=== PATIENT | male | born 1965 | race Hispanic/Latino ===

== ENCOUNTER 2016-07-25 00:04 | Emergency (ER) | payer OTHER ==
[~2016-07-25] VITALS: Ht 167.6 cm; Wt 68.0 kg
[2016-07-25 00:43] LABS: ABSOLUTE BASOPHIL COUNT 0 /CUMM (0.0-0.2); ABSOLUTE EOSINOPHIL COUNT 0.2 /CUMM (0.0-0.7); ABSOLUTE GRANULOCYTE CT 6.7 /CUMM (1.4-6.5); ABSOLUTE LYMPH COUNT 2.1 /CUMM (1.2-3.4); ABSOLUTE MONOCYTE COUNT 0.7 /CUMM (0.10-0.60); BASOPHIL % 0.3 % (0.0-2.0); GRANULOCYTE % 68.9 % (42.2-75.2); HEMATOCRIT 43.2 % (42-52); MEAN CORPUSCULAR HGB 32.2 PG (27.0-31.0); MEAN CORPUSCULAR HGB CONC 34.6 G/DL (33.0-37.0); MEAN CORPUSCULAR VOLUME 93.1 FL (80.0-94.0); MEAN PLATELET VOLUME 8.6 FL (7.4-10.4); PLATELET COUNT 253 /CUMM (130-400); RED BLOOD CELL CT 4.64 /CUMM (4.70-6.10); WHITE BLOOD CELL COUNT 9.8 /CUMM (4.8-10.8)
--- NOTE | 2016-07-25 01:36 | ED GI/GU/ABDOMINAL COMPLAINT ---
History of Present Illness General Chief Complaint: Abdominal Pain/Flank Pain Stated Complaint: ABD PAIN "FORCE MYSELF TO VOMIT" X'S 1 DAY Source: patient Exam Limitations: no limitations Vital Signs & Intake/Output Vital Signs & Intake/Output Vital Signs Date Time Temp Pulse Resp B/P Pulse O2 O2 Flow FiO2 Ox Delivery Rate 07/25 0133 97 Room Air 07/25 0020 97.5 79 18 143/89 97 Room Air Allergies Coded Allergies: NO KNOWN ALLERGIES (12/20/12) Reconcile Medications Dicyclomine Hydrochloride (Bentyl) 10 MG CAPSULE 1 CAP PO TID PRN SPASM Ondansetron (Zofran Odt) 4 MG TAB.RAPDIS 1 TAB PO Q6 PRN NAUSEA Pantoprazole Sodium (Protonix) 40 MG TABLET.DR 1 TAB PO DAILY GERD Triage Note: PT TO ED C/O SHARP MID ABDOMINAL PAIN THAT GOES TO EPIGASTRIC AREA SINCE 1699. TRIED TO MAKE HIMSELF VOMIT TO SEE IF HE WOULD FEEL BETTER, GOT BILE, DOES NOT FEEL BETTER. TRIAD MYLANTA WITH NO RELIEF. Triage Nurses Notes Reviewed? yes Onset: Abrupt Duration: hour(s): (several) Timing: multiple episodes today Associated Symptoms: abdominal pain, nausea/vomiting HPI: 51 year-old male who denies any significant past medical history presents to the ER for chief complaint of abdominal pain since 5:00 PM. He states he made himself vomit a few times at home. Nausea has since resolved but he still complains of a sharp epigastric abdominal pain. History of similar symptoms but does not recall what the diagnosis was. He is not on any daily medications. He tried Mylanta at home without any relief. Past History Travel History Traveled to [place] past 21 day No Medical History Any Pertinent Medical History? see below for history Surgical History Surgical History: non-contributory Psychosocial History What is your primary language Azeri Tobacco Use: Never used ETOH Use: occasional use Illicit Drug Use: denies illicit drug use Family History Hx Contributory? No Review of Systems Review of Systems Constitutional: Denies: chills, fever. EENTM: Reports: no symptoms. Respiratory: Denies: short of breath. Cardiovascular: Denies: chest pain. GI: Reports: abdominal pain, nausea, vomiting. Genitourinary: Reports: no symptoms. Musculoskeletal: Reports: no symptoms. Skin: Reports: no symptoms. Neurological/Psychological: Reports: no symptoms. Hematologic/Endocrine: Denies: bruising, bleeding, polyuria, polydipsia. Immunologic/Allergic: Denies: splenectomy. All Other Systems: Reviewed and Negative Physical Exam Physical Exam General Appearance: well developed/nourished, alert, awake Head: atraumatic, normal appearance Eyes: Bilateral: normal appearance, PERRL, EOMI. Ears, Nose, Throat, Mouth: hearing grossly normal, moist mucous membrane Neck: normal inspection, supple, full range of motion Respiratory: normal breath sounds, chest non-tender, no respiratory distress Cardiovascular: regular rate/rhythm Peripheral Pulses: 2+ radial (R), 2+ radial (L) Gastrointestinal: normal bowel sounds, soft, tenderness (EPIGASTRIC) Back: normal inspection, normal range of motion Neurologic/Psych: no motor/sensory deficits, awake, alert, oriented x 3 Core Measures ACS in differential dx? No Severe Sepsis Present: No Septic Shock Present: No Progress Differential Diagnosis: PUD/GERD, perforated viscous Plan of Care: Orders Procedure Date/time Status URINALYSIS 07/25 24 Complete LIPASE 07/25 24 Complete COMPREHENSIVE METABOLIC PANEL 07/25 24 Complete CBC WITHOUT DIFFERENTIAL 07/25 24 Complete AMYLASE 07/25 24 Complete Laboratory Tests 07/25/16 0040: Urinalysis LIGHT H, Urine Color YEL, Urine Clarity HAZY H, Urine pH 6.0, Ur Specific Sherrill 1.025, Urine Protein NEG, Urine Ketones NEG, Urine Nitrite NEG, Urine Bilirubin NEG, Urine Urobilinogen 0.2, Ur Leukocyte Esterase NEG, Ur Microscopic SEDIMENT EXAMINED, Urine RBC 5-10 H, Urine WBC 3-5 H, Ur Epithelial Cells FEW, Urine Crystals 1+ HIPPURATE, Urine Bacteria FEW H, Urine Mucus MOD H, Urine Hemoglobin MOD H, Urine Glucose NEG 07/25/16 0030: Anion Gap 9, Estimated GFR > 60, BUN/Creatinine Ratio 17.8, Glucose 119 H, Calcium 9.7, Total Bilirubin 1.5 H, AST 41, ALT 64, Alkaline Phosphatase 61, Total Protein 7.9, Albumin 4.7, Globulin 3.2, Albumin/Globulin Ratio 1.5, Amylase 100, Lipase 127, CBC w Diff NO MAN DIFF REQ, RBC 4.64 L, MCV 93.1, MCH 32.2 H, RDW 13.0, MPV 8.6, Gran % 68.9, Lymphocytes % 21.4, Monocytes % 7.4, Eosinophils % 2.0, Basophils % 0.3, Absolute Granulocytes 6.7 H, Absolute Lymphocytes 2.1, Absolute Monocytes 0.7 H, Absolute Eosinophils 0.2, Absolute Basophils 0, PUBS MCHC 34.6 PATIENT IMPROVED AFTER GI COCKTAIL, PROTONIX AND BENTYL. LABS WNL. 2:46 AM Patient feeling better after IM bentyl. (LELAND JAQUEZ,CALEB) Initial ED EKG: none Departure Departure Time of Disposition: 246 Disposition: HOME OR SELF CARE Condition: Stable Clinical Impression Primary Impression: Abdominal pain Referrals: MONICA SILVA MD (PCP/Family) Additional Instructions: Follow-up with your primary care doctor as well as the GI specialists listed. Take the Bentyl and Zofran and protonix as directed. Return to the ER for any changing or worsening symptoms. Departure Forms: Customer Survey General Discharge Information Prescriptions: Current Visit Scripts Ondansetron (Zofran Odt) 1 TAB PO Q6 PRN NAUSEA #20 TAB Dicyclomine Hydrochloride (Bentyl) 1 CAP PO TID PRN SPASM #30 CAP Pantoprazole Sodium (Protonix) 1 TAB PO DAILY #14 TAB
[2016-07-25] MEDS ORDERED: BENTYL10 M1 PO (02:48)
[2016-07-25] MEDS ORDERED: ZOFRAN ODT4 M1 PO (02:48)
[2016-07-25] MEDS ORDERED: PROTONIX40 M3 PO (02:49)
[2016-07-25 03:12] VITALS: BP 140/85
== END 2016-07-25 03:12 ==
LOC: ERH 00:04
PROVIDERS: Emergency Medicine
DX: R10.13 Epigastric pain (principal)
CPT/HCPCS: 81001; 96372; J0500